=== PATIENT | male | born 1975 | race Caucasian/White ===

== ENCOUNTER 2016-06-07 07:55 | Emergency (ER) | payer BC ==
[~2016-06-07] VITALS: Ht 180.3 cm; Wt 97.3 kg
[2016-06-07 08:04] VITALS: TEMP 36.7; Ht 180.3 cm; Wt 97.3 kg
[2016-06-07] MEDS ORDERED: XYLOCAINE 1%/SOD BICARB 20 ML VIAL INFIL ONE (08:15)
--- NOTE | 2016-06-07 08:26 | EMERGENCY ROOM VISIT NOTE ---
History Report prepared by Scribe: Kaitlyn Kurtz Under the Supervision of: Dr. John Paul Hirsch M.D. First contact with patient: 08:09 Chief Complaint: LACERATION/CUT (SUT/DERMABOND) Stated Complaint: CUT TO TIP OF FINGER OF RIGHT HAND Nursing Triage Summary: pt attempted to open can of stewed tomatoes this am at 0715 this am and cut right 4th finger tip History of Present Illness The patient is a 41 year old male who presents to the Emergency Room with complaints of a laceration to the tip of his right fourth finger. He reports this morning around 0715, he was attempting to open a can of stewed tomatoes, when he sustained the laceration. He rates his current pain as a 2/10. He believes he has received a tetanus shot within the past 10 years. The patient denies any chronic medical issues and has experienced no other symptoms related to his injury. Source of History: patient Onset: 0715 this morning Position: other (right fourth finger) Symptom Intensity: 2/10 Timing: resolved Review of Systems See HPI for pertinent positives & negatives. A total of 6 systems reviewed and were otherwise negative. Past Medical & Surgical Medical Problems: (1) No significant past medical history Social History Smoking Status: Never Smoker Smokeless Tobacco Use: No Alcohol Use: occasionally Drug Use: none Marital Status: Housing Status: lives with family Occupation Status: employed Current/Historical Medications Unable to Obtain Active Prescriptions or Reported Meds Allergies Coded Allergies: No Known Allergies (Unverified , 06/07/16) Physical Exam Vital Signs Date Time Temp Pulse Resp B/P Pulse Ox O2 Delivery O2 Flow Rate FiO2 06/07/16 08:56 73 18 139/95 95 06/07/16 08:04 36.7 79 18 146/92 95 Room Air Physical Exam GENERAL: Patient is well appearing and in no acute distress. HEENT: No acute trauma, normocephalic atraumatic, mucous membranes moist, no nasal congestion, no scleral icterus. NECK: No stridor, no adenopathy, no meningismus, trachea is midline. LUNGS: No dyspnea. Clear to auscultation and equal bilaterally. No wheeze, no rhonchi. HEART: Regular rate and rhythm. No murmurs, rubs, gallops appreciated. ABDOMEN: Soft, nontender, bowel sounds positive, no masses appreciated, no peritonitis. BACK: No midline tenderness, no CVA tenderness EXTREMITIES: Avulsion flap of the distal tip of finger, flap connected over palmar aspect, some discoloration to edges of flap, some mild venous oozing, does not appear grossly contaminated. Normal motion all extremities, no cyanosis , no edema. NEUROLOGIC: Alert and oriented, no acute motor or sensory deficits, no focal weakness, cranial nerves grossly intact. SKIN: No rash, no jaundice, no diaphoresis. Medical Decision & Procedures Procedure See note from Angela Mireles PA-C for full procedure details. ED Course 0811: The patient was evaluated in room A9. A complete history and physical exam was performed. 0815: Lidocaine HCl 20 ml INFIL. 0850: I reevaluated the patient. He is feeling much better. I discussed his results and discharge instructions and he verbalized complete understanding and agreement. Medical Decision Differential: Simple Laceration, Complex Laceration, Imbedded Foreign Body, Contamination/Infection Risk, Neurovascular Compromise, Tendon Injury, Compartment Syndrome, as well as Tetanus Status, amongst other pathologies entertained. 41 yr old male with avulsion laceration tip fourth digit on hand. He is in no distress and would is clean. I initially did digital block and further cleansed wound without findings of complication. Started to put in stitch however had to hand off procedure to DINO Mireles as I was called in to another room emergently. Discharged by Angela Mireles. Impression Primary Impression: Laceration of finger, right Scribe Attestation The scribe's documentation has been prepared under my direction and personally reviewed by me in its entirety. I confirm that the note above accurately reflects all work, treatment, procedures, and medical decision making performed by me. Departure Information Dispostion Home / Self-Care Prescriptions Unable to Obtain Active Prescriptions or Reported Meds Referrals No Doctor, Assigned (PCP) Patient Instructions My [facility] Additional Instructions Keep wound clean and dry. No water on the area for 12-24 hrs then no soaking until sutures removed. Do not allow any crusting or dried blood to accumulate on sutures. If this occurs, use a 1:1 solution of hydrogen peroxide/water on a Q-tip to clean the wound. Use an antibiotic ointment for 3-4 days, then let wound dry. Suture removal in 8-10 days. Follow up sooner for any signs of infection (increasing redness, swelling, drainage). Ice and elevate for swelling and pain. Tylenol 650 mg every 6 hrs for pain. Problem Qualifiers Primary Impression: Laceration of finger, right Encounter type: initial encounter Qualified Codes: S61.219A - Laceration without foreign body of unspecified finger without damage to nail, initial encounter
--- NOTE | 2016-06-07 08:52 | EMERGENCY ROOM VISIT NOTE ---
ED Visit Note Wound Repair: Complexity: Basic. Verbal consent was obtained after the risks and benefits were explained, including but not limited to bleeding, scarring, infection, pain, and bone/joint /nerve damage. The skin was prepped with betadine and a sterile field set. The wound was anesthetized with 3.0 ml of 1% buffered lidocaine. With direct pressure the bleeding subsided. Copious irrigation was performed using sterile saline. The wound was explored for foreign bodies and none found. Debridement was not performed. The wound edges were approximated using 5-0 Ethilon and 4-0 Ethilon with a total of 5 simple interrupted sutures 2 of which were through the nail.. Hemostasis and excellent approximation was achieved. Antibacterial ointment and a sterile dressing applied. Detailed wound care instructions and signs and symptoms of infection reviewed with the patient. No complications and the patient tolerated the procedure well.
[2016-06-07 08:56] VITALS: BP 139/95; PULSE 73; O2SAT 95
== END 2016-06-07 08:58 | disposition home or self-care (01) ==
LOC: C.EDB 07:57 → C.EDA 08:58
DX: S61.200A Unspecified open wound of right index finger without damage to nail, initial encounter (principal); W45.8XXA Other foreign body or object entering through skin, initial encounter